=== PATIENT | male | born 1975 | race Two or more races ===

== ENCOUNTER 2022-04-15 19:55 | Emergency (ER) | payer SELFPAY ==
[~2022-04-15] VITALS: Ht 182.9 cm; Wt 90.0 kg
[2022-04-15 19:57] VITALS: BP 135/65
[2022-04-15] MEDS ORDERED: ONDANSETRON HCL 4MG/2ML INJ IV STA (20:07)
[2022-04-15] MEDS ORDERED: SODIUM CHLORIDE 0.9% 1,000 ML IV ONE (20:15)
== END 2022-04-15 21:51 | disposition left against medical advice (07) ==
LOC: ER 19:55
DX: T40.601A Poisoning by unspecified narcotics, accidental (unintentional), initial encounter (principal); Y92.410 Unspecified street and highway as the place of occurrence of the external cause
CPT/HCPCS: 99283; J7030